=== PATIENT | female | born 1970 | race Caucasian/White ===

== ENCOUNTER 2022-11-05 12:02 | Emergency (ER) | payer OTHER ==
[~2022-11-05] VITALS: Ht 157.5 cm; Wt 70.0 kg
[~2022-11-05 12:02] MED LIST: IBUP200C5 PO
[2022-11-05 12:19] VITALS: TEMP 98.5
[2022-11-05] MEDS ORDERED: ACETAMINOPHEN 500 MG TABLET PO ONE (12:30)
[2022-11-05] MEDS ORDERED: IBUP-1492 PO (15:57)
[2022-11-05] MEDS ORDERED: ACET-3385 PO (15:57)
[2022-11-05] MEDS ORDERED: LIDO700A15 TP (15:57)
[2022-11-05 17:05] VITALS: BP 136/72; PULSE 69; RESP 16
== END 2022-11-05 18:00 | disposition home or self-care (01) ==
LOC: EMS 12:05
DX: S42.002A Fracture of unspecified part of left clavicle, initial encounter for closed fracture (principal); Z98.51 Tubal ligation status; W10.8XXA Fall (on) (from) other stairs and steps, initial encounter; Y93.89 Activity, other specified; Y92.89 Other specified places as the place of occurrence of the external cause; Y99.8 Other external cause status
CPT/HCPCS: 29105; 70450; 71250; 72125; 72128; 99284; 99285